=== PATIENT | male | born 1975 | race Caucasian/White ===

== ENCOUNTER → 2021-12-01 09:46 | Outpatient (CLI) | payer OTHER, SELFPAY ==
[2021-12-01 11:16] LABS: Alanine Aminotransferase 84 U/L (12-78); Albumin Level 4.4 g/dl (3.5-5.0); Alkaline Phosphatase 100 U/L (38-126); Aspartate Amino Transferase 61 U/L (17-59); Bilirubin,Indirect 0.2 mg/dL (0.0-0.9); Bilirubin,Total 0.2 mg/dl (0.2-1.3); Bilirubin,Unconjugated 0.2 mg/dL (0.0-1.1); Chol/HDL Ratio 2.8 (1-3.5); Cholesterol 175 mg/dl (140-200); HDL Cholesterol 63 mg/dl (40-60); Total Protein,Serum 6.7 g/dl (6.3-8.2); Triglycerides 70 mg/dl (30-150); VLDL Cholesterol 14 mg/dL (0-40)
[2021-12-01 11:28] LABS: Direct LDL Cholesterol 77.22 mg/dL (100-129)
== END ==
PROVIDERS: Visit Provider Nurse Practitioner
DX: I21.4 Non-ST elevation (NSTEMI) myocardial infarction (principal); R07.89 Other chest pain; R94.31 Abnormal electrocardiogram [ECG] [EKG]
CPT/HCPCS: 36415; 80061; 80076